=== PATIENT | female | born 1985 | race African-American/Black ===

== ENCOUNTER 2018-05-08 06:24 | Inpatient (IN) ==
[2018-05-08] MEDS ORDERED: LR 1000 ML IV 1,000 ML IV ONE ×2 (06:27→09:13)
[2018-05-08] MEDS ORDERED: D5LR 1L W PITOCIN 10 UNITS/L 10 UNITS/1,000 ML BAG IV ONE ×2 (06:27→16:45)
[2018-05-08] MEDS ORDERED: PITOCIN ONE (06:28)
[2018-05-08] MEDS ORDERED: D5 1/2 NS 1L W PITOCIN 20 UNITS/L 20 UNITS/1,000 ML BAG IV ONE (06:28)
[2018-05-08] MEDS ORDERED: NAROPIN EPIDURAL 0.2% + FENTANYL 90MCG 60 ML EPI ONE ×2 (06:28→18:35)
[2018-05-08] MEDS ORDERED: D5 1/2 NS 1000 ML 1,000 ML IV ONE (06:28)
[2018-05-08] MEDS ORDERED: FENTANYL INJ 100 mcg ONE (06:28)
[2018-05-08] MEDS ORDERED: PHENERGAN INJ 25 MG IV PRN ×2 (06:41→20:40)
[2018-05-08] MEDS ORDERED: PITOCIN IVP ONE (06:41)
[2018-05-08] MEDS ORDERED: D5 1/2 NS 1000 ML 1,000 ML IV SCH (06:41)
[2018-05-08] MEDS ORDERED: MORPHINE SULFATE INJ 2 MG INJ IVP PRN (06:41)
[2018-05-08] MEDS ORDERED: D5LR 1L W PITOCIN 10 UNITS/L 10 UNITS/1,000 ML BAG IV PRN (06:41)
[2018-05-08] MEDS ORDERED: REGLAN INJ 10 MG VIAL IVP PRN (06:41)
--- NOTE | 2018-05-08 07:33 | DR.OB ---
OB Quick Note - Assessment/Plan Assessment/Plan: L&D 05/08/18 at 7:00am S-No complaint. O-Afebrile,VSS ITZ=138 with good LTV, +accel, no decel. CTX=none CVX=1cm/50%/-1/VTX AROM with clear fluid. IUPC and FSE placed. A-IUP at 38 6/7 weeks for induction Polyhydramnios P-Begin pitocin induction Anticipate
[2018-05-08] MEDS ORDERED: NAROPIN EPIDURAL 0.2% 97 ML with FENTANYL INJ 250 mcg 150 MCG EPI PRN ×2 (09:13)
[2018-05-08] MEDS: NUBAIN INJ 200 MG VIAL MULTIDOSE IVP PRN ×2 (11:00→12:00)
--- NOTE | 2018-05-08 11:55 | DR.OB ---
OB Quick Note - Assessment/Plan Assessment/Plan: L&D 05/08/18 at 11:50am Pitocin=20mu/min. S-No complaint except CTX. O-Afebrile,VSS TQP=643 with good LTV, +accel, no decel. CTX=q 1 1/2 to 3 min., about 45-50mmHg CVX=3cm/75%/-1 A-IUP at 38 6/7 weeks for induction Polyhydramnios P-Cont. pitocin induction Anticipate
[2018-05-08] MEDS ORDERED: XYLOCAINE 1 % (PLAIN) ONE (12:43)
[2018-05-08] MEDS ORDERED: ADRENALINE CHL INJ ONE (12:44)
[2018-05-08] MEDS ORDERED: XYLOCAINE-MPF 1% ONE (12:44)
--- NOTE | 2018-05-08 16:38 | DR.OB ---
OB Quick Note - Assessment/Plan Assessment/Plan: L&D 05/08/18 at 4:30pm Pitocin=26mu/min. S-No complaint. O-Afebrile,VSS RZS=475 with good LTV, +accel, no decel. CTX=q 1 1/2 to 3min., about 45-55mmHg CVX=4cm/80%/-1 A-IUP at 38 6/7 weeks for induction Polyhydramnios P-Cont. pitocin induction Anticipate
[2018-05-08] MEDS: D5 1/2 NS 1000 ML 1,000 ML with PITOCIN 20 UNITS IV SCH ×2 (20:30)
--- NOTE | 2018-05-08 20:40 | DR.OB ---
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 Head delivered over intact perineum. No nuchal cord. Nose and mouth bulb suctioned. Body delivered over intact perineum. Cord clamped x 2 and cut. handed to attendant. Cord sent for gases. Placenta delivered spontaneously / intact / 3 vessel cord. No CVX / vaginal / perineal tears. Viable female infant, VTX/OA, wt=9'4" and 9/9, stable to NBN. Mother stable to RR. PJD=[id number].
[2018-05-08] MEDS ORDERED: MILK OF MAGNESIA PO PRN (21:35)
[2018-05-08] MEDS ORDERED: ADACEL or BOOSTRIX TDaP VACCINE IM ONE (21:35)
[2018-05-08] MEDS ORDERED: AMBIEN PO PRN (21:35)
[2018-05-08] MEDS ORDERED: DERMOPLAST SPRAY TOP PRN (21:35)
[2018-05-08] MEDS: ZANTAC PO SCH (22:00)
[2018-05-09 04:17] LABS: HEMATOCRIT 30.8 % (36.0-47.0); HEMOGLOBIN 10.5 g/dL (12.0-16.0)
[2018-05-09] MEDS: MOTRIN TAB 800 MG PO PRN (05:30)
[2018-05-09] MEDS: D5 1/2 NS 1000 ML 1,000 ML with PITOCIN 20 UNITS IV SCH ×2 (06:52)
[2018-05-09] MEDS: PRENATAL PLUS PO SCH (08:05)
[2018-05-09] MEDS: PERCOCET TAB 5/325 MG PO PRN ×2 (08:05→20:47)
[2018-05-09] MEDS: ZANTAC PO SCH ×2 (08:05→20:46)
[2018-05-10] MEDS: PERCOCET TAB 5/325 MG PO PRN (05:18)
[2018-05-10] MEDS: MOTRIN TAB 800 MG PO PRN (09:09)
[2018-05-10] MEDS: PRENATAL PLUS PO SCH (09:10)
[2018-05-10] MEDS: ZANTAC PO SCH (09:15)
[2018-05-10] MEDS ORDERED: ADACEL or BOOSTRIX TDaP VACCINE IM ONE (11:08)
[2018-05-10 11:37] VITALS: BP 117/59
== END 2018-05-10 13:00 | disposition home or self-care (01) | DRG 775 ==
LOC: LD 06:24 → MED/SURG 21:36
PROVIDERS: ADMIT Specialist; ATTEND Specialist
DX: O99.613 Diseases of the digestive system complicating pregnancy, third trimester; O40.3XX0 Polyhydramnios, third trimester, not applicable or unspecified; Z37.0 Single live birth; Z3A.38 38 weeks gestation of pregnancy
CPT/HCPCS: 36415; 59409; 85014; 85018; 90715; A4216; A4222; S0197; J0171; J2590; J3010; J7120; S5010